=== PATIENT | male | born 1985 | race Caucasian/White ===

== ENCOUNTER 2017-02-21 15:06 | Emergency (ER) | payer SELFPAY ==
--- NOTE | 2017-02-21 16:37 | EKG REPORT ---
SEVERITY:- OTHERWISE NORMAL ECG - SINUS ARRHYTHMIA, RATE [id number] : Confirmed by: Maria Teresa Rogers 21-Feb-2017 16:36:16
[2017-02-21] MEDS ORDERED: PROMETHAZINE HCL 25 MG TABLET PO ONE (16:40)
[2017-02-21] MEDS ORDERED: ACETAMINOPHEN 325 MG TABLET PO ONE (16:40)
--- NOTE | 2017-02-21 16:48 | ER Document Report ---
ED General - General Chief Complaint: Chest Pain Stated Complaint: CHEST PAIN/DIFFICULTY BREATHING Time Seen by Provider: 02/21/17 16:25 Notes: Patient says that about 11:30 PM , he experienced pain in the center of his chest followed by vomiting about 3 times. He was able to fall asleep about 3 AM and awakened about 6:15 in the morning Wednesday feeling "lethargic" and still having some mild pain, but it was subsiding. He was able to go to work at 4 PM Wednesday at a local [employer] and did not have any pain and also worked a shift on Wednesday and did not experience any pain. Then, this morning, he had the return of the pain in the center of his chest about 10 AM and it is not gone away since then. He has not had any vomiting since the initial episode night. Does not have any pains in his abdomen. Feels a little bit short of breath. Has not had a significant cough or cold or chest congestion. Not having any fevers. Has never had this chest pain before. Patient recalls no unusual activity or injury. Denies being under a lot of stress or suffering anxiety. Patient is not on any regular prescription medications. Has only taken 1 ibuprofen for this chest pain Wednesday. Patient says that he is a recovering alcoholic and addict and does not wish to have any narcotic pain medications. TRAVEL OUTSIDE OF THE [place] IN LAST 30 DAYS: No - Related Data Allergies/Adverse Reactions: levofloxacin [From Levaquin] Allergy (Verified 02/21/17 15:13) Past Medical History - Social History Smoking Status: Current Every Day Smoker Frequency of alcohol use: None Drug Abuse: None Family History: Reviewed & Not Pertinent Patient has suicidal ideation: No Patient has homicidal ideation: No Psychiatric Medical History: Denies: Hx Anxiety Past Surgical History: Reports: Hx Orthopedic Surgery - rt shoulder and rt knee , rt wrist - Immunizations Hx Diphtheria, Pertussis, Tetanus Vaccination: Yes Review of Systems - Review of Systems Notes: REVIEW OF SYSTEMS: CONSTITUTIONAL : Denies fever. EENT: Denies eye, ear, nose or mouth or throat pain or other symptoms. CARDIOVASCULAR: See HPI. RESPIRATORY: Denies cough, chest congestion, but a "little bit short of breath ". GASTROINTESTINAL: Denies abdominal pain or nausea, vomiting, or diarrhea. GENITOURINARY: Denies difficulty or painful urinating, urinary frequency, blood in urine. MUSCULOSKELETAL: Denies back or neck pain. Denies joint pain or swelling. SKIN: Denies rash or skin lesions. NEUROLOGICAL: Denies LOC or altered mental status. Denies headache. Denies sensory loss or motor deficits. ALL OTHER SYSTEMS REVIEWED AND NEGATIVE. Physical Exam - Vital signs Vitals: Temp Pulse Resp BP Pulse Ox 98.8 F 77 18 152/96 H 97 02/21/17 15:12 02/21/17 15:12 02/21/17 15:12 02/21/17 15:12 02/21/17 15:12 Interpretation: Normal - Notes Notes: PHYSICAL EXAMINATION: GENERAL: Well-appearing, in no acute distress. Vital signs all normal. HEAD: Atraumatic, normocephalic. NECK: Normal range of motion, supple. LUNGS: Breath sounds clear and equal bilaterally. Very slight tenderness to palpate in the midsternal region. HEART: Regular rate and rhythm without murmurs. No rubs heard. ABDOMEN: Soft, nontender. No guarding or rebound. BACK: No tenderness throughout entire back. EXTREMITIES: Normal range of motion without pain. Negative Homans bilaterally. NEUROLOGICAL: Normal speech, normal gait. Normal sensory, motor, and reflex exams. Awake, alert, and oriented x3. PSYCH: Normal mood, normal affect. Anxious SKIN: Warm, dry, no rashes. Course - Vital Signs Vital signs: Temp Pulse Resp BP Pulse Ox 98.9 F 78 19 148/74 H 100 02/21/17 20:30 02/21/17 20:30 02/21/17 20:30 02/21/17 20:30 02/21/17 20:30 02/22/17 00:13 Patient's d-dimer was only minimally elevated at 0.54, but I recommended a CTA and the patient agreed. This study was negative for pulmonary emboli. It did, however, show a significant right diaphragmatic hernia with part of the dome of the liver in the hernia. However, I do not think this finding has anything to do with the patient's pain that he is experiencing. I once again question the patient as to whether he might be under unusual stress or be anxious or worried or be having a panic attack and he is very firm that he is not feeling particularly overstressed. Patient has off for a few days with the holiday and I advised him to rest and follow-up with a local primary care or return for us to reevaluate if he still having symptoms after 23 February is over. - Laboratory Result Diagrams: 02/21/17 17:23 02/21/17 17:23 Laboratory results interpreted by me: 02/21/17 02/21/17 17:23 17:23 WBC 14.7 H Absolute Neutrophils 11.0 H D-Dimer 0.54 H Discharge - Discharge Clinical Impression: Chest pain, non-cardiac Condition: Stable Disposition: HOME, SELF-CARE Additional Instructions: CHEST PAIN OF UNCLEAR CAUSE: The exact cause of your chest pain isn't clear. Fortunately, there is no evidence of a dangerous medical condition. Further testing may be required to find the source of the pain. Most often, we find that this pain is coming from the chest wall -- the muscles or rib joints in the chest. But chest pain can come from the lung and lung lining, the esophagus, the heart valves or heart lining, and even the stomach or gallbladder. Rest. Eat lightly until the pain is gone. We may prescribe medicine for pain and inflammation. You should call the physician immediately if the pain radiates to the shoulder, jaw or arms; if you start to run a fever or develop a cough; or if you develop shortness of breath, or other new or alarming symptoms. NORMAL EXAM AND WORKUP: At this time, your examination and workup show no significant abnormality. No significant abnormal physical findings were noted. All laboratory, EKG, and imaging (x-ray, CT scans, ultrasound) studies that were ordered show no significant abnormality. Although your examination and all studies that were ordered showed no significant abnormal finding, there are no examinations and no studies that are 100% accurate. There is always the possibility that some abnormality could exist and not be detected with physical examination or within the limits and capabilities of laboratory and other studies. You should return or follow up as you were instructed on your visit today for further evaluation if your symptoms do not resolve. CHEST WALL PAIN: Your chest pain may be coming from the chest wall. This is often caused by straining the muscles or joints in the chest during physical activity, direct trauma, coughing, or vigorous vomiting. Persons with arthritis are especially prone to this type of pain, due to inflammation of the cartilage joints near the breast bone. Occasionally, no cause can be found. Rest from strenuous physical activity. This kind of chest pain is usually made worse by movement of the chest. Depending on the symptoms, we may prescribe medicine for pain, muscle relaxation, and antiinflammatory effects. If the pain is new, and seems to be due to muscle strain, cold packs can help. Otherwise, apply gentle warmth to the painful area for 15 minutes every hour or two. You should call contact the doctor immediately if things change. Further evaluation is needed if you develop a fever or cough, if the nature of the pain changes, or if you become short of breath. ASPIRIN: Aspirin has been shown to have a beneficial effect on blood circulation by reducing the clotting effect of platelets in the blood. These beneficial effects can be achieved by taking just a single baby (81 mg) aspirin a day. It is recommended that any person over the age of forty take a single baby aspirin every day for heart and brain circulation, unless you are allergic to aspirin or have some significant bleeding disorder. It is strongly recommended that people who have proven cardiac or blood circulation disturbances should take a baby aspirin every day. Stop Smoking You should stop smoking. The tar and chemicals in cigarette smoke are harmful. Smoking has been shown to cause: Emphysema and chronic bronchitis Lung cancer Cancer of the mouth, larynx, stomach, and pancreas Heart disease and stroke Stillbirths and miscarriage Premature aging In addition, smoking increases the chances of respiratory infections and ear infections in children of smokers, and increases the risk of cancer in persons exposed to second-hand smoke. Classes are available to help you stop smoking. If you are serious about wanting to quit, we can help arrange this therapy for you, or you can contact the local lung or cancer association. FOLLOW-UP CARE: If you have been referred to a physician for follow-up care, call the physician s office for an appointment as you were instructed or within the next two days. If you experience worsening or a significant change in your symptoms, notify the physician immediately or return to the Emergency Department at any time for re-evaluation. Return for further evaluation if you develop new or worsening symptoms.
[2017-02-21 17:43] LABS: ABSOLUTE BASOPHILS # (AUTO) 0.1 10^3/uL (0.0-0.2); ABSOLUTE EOSINOPHILS # (AUTO) 0.3 10^3/uL (0.0-0.6); ABSOLUTE MONOCYTES (AUTO) 1.4 10^3/uL (0.1-1.4); BASOPHILS % (AUTO) 0.5 % (0-2); EOSINOPHILS % (AUTO) 1.9 % (0-6); HEMATOCRIT 48.6 % (37.9-51.0); HEMOGLOBIN 15.6 g/dL (13.5-17.0); HGB HCT DIFFERENCE -1.8; LYMPHOCYTES % (AUTO) 13.6 % (13-45); MEAN CORPUSCULAR HEMOGLOBIN 29.1 pg (27.0-33.4); MEAN CORPUSCULAR HGB CONC 32.2 g/dL (32.0-36.0); MEAN CORPUSCULAR VOLUME 90 fl (80-97); MONOCYTES % (AUTO) 9.2 % (3-13); RED BLOOD COUNT 5.37 10^6/uL (4.35-5.55); RED CELL DISTRIBUTION WIDTH 13.3 % (11.5-14.0); SEGMENTED NEUTROPHILS % (AUTO) 74.8 % (42-78); WHITE BLOOD COUNT 14.7 10^3/uL (4.0-10.5)
[2017-02-21 17:48] LABS: APPEARANCE,URINE CLEAR; BILIRUBIN,URINE NEGATIVE (NEGATIVE); GLUCOSE, URINE NEGATIVE (NEGATIVE); KETONES,URINE NEGATIVE (NEGATIVE); LEUKOCYTE ESTERASE,URINE NEGATIVE (NEGATIVE); NITRITE,URINE NEGATIVE (NEGATIVE); PROTEIN,URINE NEGATIVE (NEGATIVE); URINE SPECIFIC GRAVITY 1.018; UROBILINOGEN,URINE NEGATIVE mg/dL (<2.0)
[2017-02-21 18:01] LABS: ALANINE AMINOTRANSFERASE 45 U/L (21-72); ALBUMIN 4.5 g/dL (3.5-5.0); ALKALINE PHOSPHATASE 69 U/L (38-126); ANION GAP 10 (5-19); ASPARTATE AMINO TRANSFERASE 25 U/L (17-59); BILIRUBIN,DIRECT 0.3 mg/dL (0.0-0.4); BILIRUBIN,TOTAL 0.8 mg/dL (0.2-1.3); BLOOD UREA NITROGEN 13 mg/dL (7-20); CALCIUM 9.6 mg/dL (8.4-10.2); CARBON DIOXIDE 28 mmol/L (22-30); CHLORIDE 100 mmol/L (98-107); CREATINE KINASE 145 U/L (55-170); CREATININE RESULT 0.92 mg/dL (0.52-1.25); GLUCOSE 91 mg/dL (75-110); POTASSIUM 4.8 mmol/L (3.6-5.0); SODIUM 137.8 mmol/L (137-145); TOTAL PROTEIN 7.4 g/dL (6.3-8.2)
--- NOTE | 2017-02-21 18:01 | RADIOLOGY REPORT (SQ) ---
EXAM DESCRIPTION: CHEST PA/LAT COMPLETED DATE/TIME: 02/21/2017 5:30 pm REASON FOR STUDY: Mid anterior chest pain COMPARISON: 2009. TECHNIQUE: Frontal and lateral radiographic views of the chest acquired. NUMBER OF VIEWS: Two view. LIMITATIONS: None. FINDINGS: LUNGS AND PLEURA: No opacities, masses or pneumothorax. No pleural effusion. MEDIASTINUM AND HILAR STRUCTURES: No masses or contour abnormalities. HEART AND VASCULAR STRUCTURES: Heart normal size. No evidence for failure. BONES: No acute findings. HARDWARE: None in the chest. OTHER: No other significant finding. IMPRESSION: NO SIGNIFICANT RADIOGRAPHIC FINDING IN THE CHEST. TECHNICAL DOCUMENTATION: JOB ID: [id number] [email or web address]- All Rights Reserved
[2017-02-21 18:13] LABS: CREATINE KINASE MB 1.78 ng/mL (<4.55)
[2017-02-21 18:20] LABS: TROPONIN I < 0.012 ng/mL
--- NOTE | 2017-02-21 19:56 | RADIOLOGY REPORT (SQ) ---
EXAM DESCRIPTION: CTA CHEST COMPLETED DATE/TIME: 02/21/2017 7:42 pm REASON FOR STUDY: Anterior chest pain, minimally elevated d-dimer COMPARISON: Radiographs. TECHNIQUE: CT scan of the chest performed using helical scanning technique with dynamic intravenous contrast injection. Images reviewed with lung, soft tissue and bone windows. Reconstructed coronal and sagittal MPR images reviewed. Additional 3 dimensional post-processing performed to develop Maximal Intensity Projection images (NH P). All images stored on PACS. All CT scanners at this facility use dose modulation, iterative reconstruction, and/or weight based d osing when appropriate to reduce radiation dose to as low as reasonably achievable (ALARA). [facility]: Dose Right [facility]: CareDose [facility]: Dose Right [facility]: Teradose 4D [facility]: Symphony Dynamo CONTRAST TYPE AND DOSE: contrast/concentration: Isovue 370.00 mg/ml; Total Contrast Delivered: 83.0 ml; Total Saline Delivered: 110.0 ml RENAL FUNCTION: None required. The patient is less than 50 years old. RADIATION DOSE: Up-to-date CT equipment and radiation dose reduction techniques were employed. CTDIv ol: 23.2 - 26.0 mGy. DLP: 1083 mGy-cm. . LIMITATIONS: None. FINDINGS: LUNGS AND PLEURA: Minimal right lower lobe posterior scar/ subsegmental atelectasis. No a cute infiltrate. No pleural disease. Central right diaphragmatic hernia containing a portion of jennifer er dome. This herniated liver tissue measures up to 10 cm maximally. AORTA AND GREAT VESSELS: No aneurysm or dissection. HEART: No pericardial effusion. PULMONARY ARTERIES: No emboli visualized in the main pulmonary arteries or the segmental branches. HILAR AND MEDIASTINAL STRUCTURES: No identified masses or abnormal nodes. HARDWARE: None in the chest. UPPER ABDOMEN: No significant findings. Limited exam. THYROID AND OTHER SOFT TISSUES: No masses. No adenopathy. BONES: No acute or significant finding. 3D MIPS: Confirm above findings. OTHER: No other significant finding. IMPRESSION: 1. No pulmonary embolus or acute pulmonary infiltrate. 2. Right diaphragmatic hernia, l ikely chronic when correlated with radiographs going back to 2009. The hernia contains fat and a por tion of liver dome. TECHNICAL DOCUMENTATION: JOB ID: [id number] Quality ID # [id number]: Final reports with documentation of one or more dose reduction techniques (e.g., Au tomated exposure control, adjustment of the mA and/or kV according to patient size, use of iterative reconstruction technique) 2010 [employer]- All Rights Reserved
[2017-02-21 20:36] VITALS: BP 148/74
== END 2017-02-21 20:30 | disposition home or self-care (01) ==
LOC: ER 15:06
DX: R07.89 Other chest pain (principal); K44.9 Diaphragmatic hernia without obstruction or gangrene; R06.02 Shortness of breath; F17.200 Nicotine dependence, unspecified, uncomplicated; Z88.1 Allergy status to other antibiotic agents
CPT/HCPCS: 36415; 71020; 71275; 80053; 81001; 82550; 82553; 84484; 85025; 85379; 93005; 93010; 99285

== ENCOUNTER 2017-02-22 18:02 | Observation (INO) | payer SELFPAY ==
[~2017-02-22 18:02] MED LIST: DEXAMETHASONE SOD PHOSPHATE INJ 4 MG/1 ML VIAL ONE; GLYCOPYRROLATE INJ 0.4 MG/2 ML VIAL ONE; LIDOCAINE 2% INJ-PF (20 MG/ML) 10 ML AMPUL ONE; NEOSTIGMINE METHYLSULFATE 10 MG/10 ML VIAL ONE; ONDANSETRON HCL INJ/PF 4 MG/2 ML SDV ONE; SUCCINYLCHOLINE CHLORIDE INJ 200 MG/10 ML VIAL ONE; VECURONIUM BROMIDE INJ 10 MG VIAL IV ONE
[2017-02-22] MEDS ORDERED: METOCLOPRAMIDE HCL ORAL SOLN 10 MG/10 ML UDCUP PO ONE (19:22)
[2017-02-22] MEDS ORDERED: MAG HYDROX/AL HYDROX/SIMETH SUSP 30 ML UDCUP PO ONE (19:22)
[2017-02-22] MEDS ORDERED: LIDOCAINE 2% VISCOUS SOLN 20 ML UDCUP PO ONE (19:22)
--- NOTE | 2017-02-22 19:26 | ER Document Report ---
ED Medical Screen (RME) - General Chief Complaint: Abdominal Pain Stated Complaint: ABDOMINAL PAIN Time Seen by Provider: 02/22/17 19:11 Notes: The patient is a 31-year-old male who presents with worsening epigastric pain and now right upper quadrant abdominal pain. He was seen in the emergency room for epigastric pain yesterday and there was concern about PE. He had a CTA, which did not show a PE, but did show evidence of a diaphragmatic fat hernia above his liver. He is also having nausea and vomiting. He denies fevers, urinary symptoms, back pain, diarrhea, constipation or rash. PE: Epigastric and RUQ tenderness, normal bowel sounds, RRR I have greeted and performed a rapid initial assessment of this patient. A comprehensive ED assessment and evaluation of the patient, analysis of test results and completion of the medical decision making process will be conducted by additional ED providers. TRAVEL OUTSIDE OF THE [place] IN LAST 30 DAYS: No - Related Data Allergies/Adverse Reactions: levofloxacin [From Levaquin] Allergy (Verified 02/22/17 18:07) Past Medical History Renal/ Medical History: Denies: Hx Peritoneal Dialysis Skin Medical History: Denies Hx MRSA Psychiatric Medical History: Denies: Hx Anxiety Past Surgical History: Reports: Hx Orthopedic Surgery - rt shoulder and rt knee , rt wrist - Immunizations Hx Diphtheria, Pertussis, Tetanus Vaccination: Yes Physical Exam - Vital signs Vitals: Temp Pulse Resp BP Pulse Ox 98.5 F 88 20 149/86 H 96 02/22/17 18:07 02/22/17 18:07 02/22/17 18:07 02/22/17 18:07 02/22/17 18:07 Course - Vital Signs Vital signs: Temp Pulse Resp BP Pulse Ox 98.5 F 88 20 149/86 H 96 02/22/17 18:07 02/22/17 18:07 02/22/17 18:07 02/22/17 18:07 02/22/17 18:07
[2017-02-22 20:50] LABS: APPEARANCE,URINE CLEAR; BILIRUBIN,URINE NEGATIVE (NEGATIVE); GLUCOSE, URINE NEGATIVE (NEGATIVE); KETONES,URINE TRACE mg/dL (NEGATIVE); LEUKOCYTE ESTERASE,URINE NEGATIVE (NEGATIVE); NITRITE,URINE NEGATIVE (NEGATIVE); PROTEIN,URINE NEGATIVE (NEGATIVE); URINE SPECIFIC GRAVITY 1.026
[2017-02-22 21:20] LABS: ABSOLUTE BASOPHILS # (AUTO) 0.1 10^3/uL (0.0-0.2); ABSOLUTE EOSINOPHILS # (AUTO) 0.1 10^3/uL (0.0-0.6); ABSOLUTE LYMPHOCYTES (AUTO) 1.6 10^3/uL (0.5-4.7); ABSOLUTE MONOCYTES (AUTO) 1.3 10^3/uL (0.1-1.4); ABSOLUTE NEUT (AUTO) 12.4 10^3/uL (1.7-8.2); BASOPHILS % (AUTO) 0.3 % (0-2); EOSINOPHILS % (AUTO) 0.5 % (0-6); HEMATOCRIT 46.2 % (37.9-51.0); HEMOGLOBIN 15.4 g/dL (13.5-17.0); LYMPHOCYTES % (AUTO) 10.3 % (13-45); MEAN CORPUSCULAR HEMOGLOBIN 29.4 pg (27.0-33.4); MEAN CORPUSCULAR HGB CONC 33.4 g/dL (32.0-36.0); MEAN CORPUSCULAR VOLUME 88 fl (80-97); MONOCYTES % (AUTO) 8.5 % (3-13); RED BLOOD COUNT 5.25 10^6/uL (4.35-5.55); RED CELL DISTRIBUTION WIDTH 13.1 % (11.5-14.0); SEGMENTED NEUTROPHILS % (AUTO) 80.4 % (42-78); WHITE BLOOD COUNT 15.4 10^3/uL (4.0-10.5)
[2017-02-22 21:34] LABS: ALANINE AMINOTRANSFERASE 50 U/L (21-72); ALBUMIN 4.5 g/dL (3.5-5.0); ALKALINE PHOSPHATASE 75 U/L (38-126); ANION GAP 14 (5-19); ASPARTATE AMINO TRANSFERASE 24 U/L (17-59); BILIRUBIN,DIRECT 0.3 mg/dL (0.0-0.4); BILIRUBIN,TOTAL 0.8 mg/dL (0.2-1.3); BLOOD UREA NITROGEN 14 mg/dL (7-20); CALCIUM 9.7 mg/dL (8.4-10.2); CARBON DIOXIDE 27 mmol/L (22-30); CHLORIDE 99 mmol/L (98-107); CREATININE RESULT 0.94 mg/dL (0.52-1.25); GLUCOSE 108 mg/dL (75-110); LIPASE 40.6 U/L (23-300); POTASSIUM 4.2 mmol/L (3.6-5.0); SODIUM 139.5 mmol/L (137-145); TOTAL PROTEIN 7.6 g/dL (6.3-8.2)
[2017-02-22] MEDS ORDERED: NORMAL SALINE 1000 ML 1,000 ML IV ONE (21:52)
[2017-02-22] MEDS ORDERED: KETOROLAC TROMETHAMINE INJ/PF 30 MG/1 ML SDV IV ONE (21:52)
--- NOTE | 2017-02-22 21:53 | ER Document Report ---
ED GI/ - General Chief Complaint: Abdominal Pain Stated Complaint: ABDOMINAL PAIN Time Seen by Provider: 02/22/17 19:11 Notes: Patient is a 31-year-old male comes emergency department for chief complaint of sharp mid to right upper quadrant pain as well as pain in the epigastric area. He denies nausea or vomiting. Symptoms have worsened since yesterday. He was evaluated yesterday and had a CTA of the chest which was negative for pulmonary emboli, showed diaphragmatic hernia which apparently was not new. Patient denies any fever or chills, states that he took MiraLAX and had a loose bowel movement because he thought he might of been constipated. 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 No current daily medications. TRAVEL OUTSIDE OF THE [place] IN LAST 30 DAYS: No - Related Data Allergies/Adverse Reactions: levofloxacin [From Levaquin] Allergy (Verified 02/22/17 18:07) Past Medical History - General Information source: Patient - Social History Smoking Status: Current Every Day Smoker Frequency of alcohol use: former heavy Drug Abuse: Other - former Lives with: Spouse/Significant other Family History: Reviewed & Not Pertinent Patient has suicidal ideation: No Patient has homicidal ideation: No Renal/ Medical History: Denies: Hx Peritoneal Dialysis Musculoskeltal Medical History: Reports Hx Musculoskeletal Deformity, Reports Hx Musculoskeletal Trauma Skin Medical History: Denies Hx MRSA Psychiatric Medical History: Denies: Hx Anxiety Past Surgical History: Reports: Hx Orthopedic Surgery - rt shoulder and rt knee , rt wrist - Immunizations Hx Diphtheria, Pertussis, Tetanus Vaccination: Yes Review of Systems - Review of Systems Constitutional: No symptoms reported EENT: No symptoms reported Cardiovascular: No symptoms reported Respiratory: No symptoms reported Gastrointestinal: See HPI Genitourinary: No symptoms reported Male Genitourinary: No symptoms reported Musculoskeletal: No symptoms reported Skin: No symptoms reported Hematologic/Lymphatic: No symptoms reported Neurological/Psychological: No symptoms reported Physical Exam - Vital signs Vitals: Temp Pulse Resp BP Pulse Ox 98.5 F 88 20 149/86 H 96 02/22/17 18:07 02/22/17 18:07 02/22/17 18:07 02/22/17 18:07 02/22/17 18:07 Interpretation: Normal - General General appearance: Alert, Anxious In distress: Mild - patient appears to be in some pain - HEENT Head: Normocephalic, Atraumatic Eyes: Normal Conjunctiva: Normal Extraocular movements intact: Yes Eyelashes: Normal Pupils: PERRL Sinus: Normal Nasal: Normal Mouth/Lips: Normal Mucous membranes: Normal Pharynx: Normal Neck: Normal - Respiratory Respiratory status: No respiratory distress Chest status: Nontender Breath sounds: Normal. No: Decreased air movement, Wheezing Chest palpation: Normal - Cardiovascular Rhythm: Regular. No: Tachycardia Heart sounds: Normal auscultation, S1 appreciated, S2 appreciated Murmur: No - Abdominal Inspection: Normal Distension: No distension Bowel sounds: Normal Tenderness: Tender - RUQ guarding on examination, otherwise unremarkable, Zamora 's sign, Guarding Organomegaly: No organomegaly - Back Back: Normal, Nontender. No: Tender, CVA tenderness - Extremities General upper extremity: Normal inspection, Nontender, Normal color, Normal ROM , Normal temperature General lower extremity: Normal inspection, Nontender, Normal color, Normal ROM , Normal temperature, Normal weight bearing. No: Maria T's sign - Neurological Neuro grossly intact: Yes Cognition: Normal Orientation: AAOx4 [place] Coma Scale Eye Opening: Spontaneous [place] Coma Scale Verbal: Oriented [place] Coma Scale Motor: Obeys Commands [place] Coma Scale Total: 15 Speech: Normal Motor strength normal: LUE, RUE, LLE, RLE Sensory: Normal - Skin Skin Temperature: Warm Skin Moisture: Dry Skin Color: Normal Course - Re-evaluation Re-evalutation: Patient examination with guarding in the right upper quadrant, positive Zamora sign, questionable for acute cholecystitis. Patient will be kept n.p.o., given Toradol, IV fluids, pending ultrasound results. Meal was at 2 PM. Ultrasound shows cholelithiasis, possible pericholecystic fluid. Leukocytosis at 15,000. Clinical picture consistent with acute cholecystitis. Giving IV antibiotics Invanz. Discussed with Dr. Paul. Discussed with Dr. Dutton, general surgery operations officer [employer] , he will come evaluate the patient. Patient states full agreement with this plan Dr. Dutton will admit the patient to the hospital. - Vital Signs Vital signs: Temp Pulse Resp BP Pulse Ox 97.5 F 72 17 141/86 H 94 02/23/17 08:02 02/23/17 08:02 02/23/17 08:02 02/23/17 08:02 02/23/17 08:02 - Laboratory Result Diagrams: 02/22/17 21:10 02/22/17 21:10 Laboratory results interpreted by me: 02/22/17 02/22/17 19:20 21:10 WBC 15.4 H Seg Neutrophils % 80.4 H Lymphocytes % 10.3 L Absolute Neutrophils 12.4 H Urine Ketones TRACE H Urine Urobilinogen 4.0 H Discharge - Discharge Clinical Impression: Cholecystitis, acute with cholelithiasis Qualifiers: Cholelithiasis location: gallbladder Biliary obstruction: without biliary obstruction Qualified Code(s): K80.00 - Calculus of gallbladder with acute cholecystitis without obstruction Condition: Stable Disposition: ADMITTED INPATIENT Admitting Provider: Surgicalist Unit Admitted: Surgical Floor
--- NOTE | 2017-02-22 22:10 | RADIOLOGY REPORT (SQ) ---
EXAM DESCRIPTION: U/S ABDOMEN LIMITED W/O DOP COMPLETED DATE/TIME: 02/22/2017 9:37 pm REASON FOR STUDY: RUQ pain COMPARISON: None. TECHNIQUE: Dynamic and static grayscale images acquired of the abdomen and recorded on PACS. Additio nal selected color Doppler and spectral images recorded. LIMITATIONS: None. FINDINGS: PANCREAS: Obscured by overlying bowel gas. LIVER: No masses. Echotexture normal. LIVER VASCULATURE: Normal directional flow of the main portal vein and hepatic veins. GALLBLADDER: Shadowing gallstone noted in the region of the neck. There is proximal small amount of pericholecystic fluid, evaluation is somewhat limited on this study due did patient's inability to mo ve an overlying bowel gas. No significant wall thickening of the gallbladder noted. ULTRASOUND-DETECTED ZAMORA'S SIGN: Positive. INTRAHEPATIC DUCTS AND COMMON DUCT: CBD and intrahepatic ducts normal caliber. No filling defects. C ommon bile duct measures 5 mm INFERIOR VENA CAVA: Normal flow. AORTA: No aneurysm. RIGHT KIDNEY: Normal size. Normal echogenicity. No solid or suspicious masses. No hydronephrosis. No calcifications. PERITONEAL AND RIGHT PLEURAL SPACE: No ascites or effusions. OTHER: No other significant findings. IMPRESSION: 1. Cholelithiasis with possible due pericholecystic fluid not well visualized on this st udy due to patient's inability to hold breath/moved in and bowel gas. No gallbladder wall thickening . Positive Zamora sign. Clinical correlation for acute cholecystitis recommended. No evidence of b iliary dilatation. No evidence of choledocholithiasis. 2. Otherwise right unremarkable right upper quadrant ultrasound. TECHNICAL DOCUMENTATION: JOB ID: [id number] [employer]- All Rights Reserved
[2017-02-22] MEDS ORDERED: ERTAPENEM SODIUM INJ 1 GM VIAL IV ONE (22:55)
[2017-02-22] MEDS ORDERED: NORMAL SALINE 1000 ML 1,000 ML IV PRN (22:55)
--- NOTE | 2017-02-22 23:27 | PDOC H&P ---
History of Present Illness Patient complains of: Abdominal pain History of Present Illness: TIA ESTRELLA is a 31 year old male who presents emergency department complaining of several day history of abdominal pain. Patient was seen in the emergency department yesterday complaining of acute chest pain. He was worked up with chest x-ray, CTA which were negative for acute findings. Patient was sent home on ibuprofen. He continued to have abdominal pain more in the right upper quadrant, no bowel movement in 2 days, and anorexia. He was reevaluated today by gallbladder ultrasonography and found to have cholelithiasis with pericholecystic fluid. He has a persisting leukocytosis right upper quadrant tenderness. Findings are significant for acute cholecystitis with cholelithiasis. Surgery was consulted he was advised admission. Prior to 2 days ago the patient had no abdominal complaints. Past Medical History Psychiatric Medical History: Reports: Substance Abuse Past Surgical History Past Surgical History: Reports: Orthopedic Surgery - rt shoulder and rt knee, rt wrist, Other - Left inguinal herniorrhaphy 7 years old; trauma right arm Social History Smoking Status: Current Every Day Smoker Hx Recreational Drug Use: Yes Past Social History Note: Patient states she has a history of substance abuse Family History Family History: Reviewed & Not Pertinent Parental Family History Reviewed: Yes Children Family History Reviewed: Yes Sibling(s) Family History Reviewed.: Yes Medication/Allergy Home Medications: Ondansetron [Zofran Odt 4 mg Tablet] 1 - 2 tab PO Q4H PRN #15 tab.rapdis Allergies/Adverse Reactions: levofloxacin [From Levaquin] Allergy (Verified 02/22/17 18:07) Review of Systems Constitutional: ABSENT: chills, fever(s), headache(s), weight gain, weight loss Eyes: ABSENT: visual disturbances Ears: ABSENT: hearing changes Cardiovascular: ABSENT: chest pain, dyspnea on exertion, edema, orthropnea, palpitations Gastrointestinal: PRESENT: as per HPI Genitourinary: ABSENT: dysuria, hematuria Musculoskeletal: ABSENT: joint swelling Integumentary: ABSENT: rash, wounds Neurological: ABSENT: abnormal gait, abnormal speech, confusion, dizziness, focal weakness, syncope Physical Exam Vital Signs: Temp Pulse Resp BP Pulse Ox 98.2 F 60 20 135/82 H 95 02/22/17 22:48 02/22/17 22:48 02/22/17 22:48 02/22/17 22:48 02/22/17 22:48 Intake & Output 02/21/17 02/22/17 02/23/17 06:59 06:59 06:59 Weight 119.2 kg General appearance: PRESENT: mild distress Head exam: PRESENT: normocephalic Eye exam: PRESENT: EOMI Ear exam: PRESENT: TM's normal bilaterally Mouth exam: PRESENT: moist Neck exam: PRESENT: full ROM Respiratory exam: PRESENT: chest wall tenderness Cardiovascular exam: PRESENT: RRR Pulses: PRESENT: normal carotid pulses, normal radial pulses GI/Abdominal exam: PRESENT: other - Significantly tender right upper quadrant with some guarding. No hernia no organomegaly. Rectal exam: PRESENT: deferred Extremities exam: PRESENT: full ROM Musculoskeletal exam: PRESENT: ambulatory Neurological exam: PRESENT: alert, altered, awake, oriented to person, oriented to place Psychiatric exam: PRESENT: appropriate affect Skin exam: PRESENT: dry Results Laboratory Results: 02/22/17 21:10 02/22/17 21:10 02/22/17 02/22/17 02/22/17 19:20 21:10 21:10 WBC 15.4 H RBC 5.25 Hgb 15.4 Hct 46.2 MCV 88 MCH 29.4 MCHC 33.4 RDW 13.1 Plt Count 293 Seg Neutrophils % 80.4 H Lymphocytes % 10.3 L Monocytes % 8.5 Eosinophils % 0.5 Basophils % 0.3 Absolute Neutrophils 12.4 H Absolute Lymphocytes 1.6 Absolute Monocytes 1.3 Absolute Eosinophils 0.1 Absolute Basophils 0.1 Sodium 139.5 Potassium 4.2 Chloride 99 Carbon Dioxide 27 Anion Gap 14 BUN 14 Creatinine 0.94 Est GFR ( Amer) > 60 Est GFR (Non-Af Amer) > 60 Glucose 108 Calcium 9.7 Total Bilirubin 0.8 AST 24 ALT 50 Alkaline Phosphatase 75 Total Protein 7.6 Albumin 4.5 Lipase 40.6 Urine Color YELLOW Urine Appearance CLEAR Urine pH 7.0 Ur Specific [place] 1.026 Urine Protein NEGATIVE Urine Glucose (UA) NEGATIVE Urine Ketones TRACE H Urine Blood NEGATIVE Urine Nitrite NEGATIVE Ur Leukocyte Esterase NEGATIVE Urine WBC (Auto) 1 Urine RBC (Auto) 2 Impressions: Abdomen Ultrasound 02/22/17 19:22 IMPRESSION: 1. Cholelithiasis with possible due pericholecystic fluid not well visualized on this study due to patient's inability to hold breath/moved in and bowel gas. No gallbladder wall thickening. Positive Zamora sign. Clinical correlation for acute cholecystitis recommended. No evidence of biliary dilatation. No evidence of choledocholithiasis. 2. Otherwise right unremarkable right upper quadrant ultrasound. Assessment & Plan - Diagnosis (1) Cholecystitis, acute with cholelithiasis Is this a current diagnosis for this admission?: YesPlan: Plan: 1. Admit, IV fluids, IV antibiotics, n.p.o. after midnight 2. Laparoscopic, possible open cholecystectomy, tomorrow, general anesthesia, 1 hour, possible drain; the mechanics of the operation, including an explanation of risks benefits alternatives reviewed with the patient. I believe he understands and agrees to proceed. (2) History of substance abuse Is this a current diagnosis for this admission?: YesPlan: Patient expresses wishes to have no narcotics. We will respect those wishes (3) Smoker Is this a current diagnosis for this admission?: YesPlan: Patient smokes a pack a day. - Time Time Spent: 50 to 70 Minutes Critical Time spent with patient: 15-24 minutes Anticipated discharge: Home - Inpatient Certification Medical Necessity: Need For IV Fluids, Need for Pain Control, Need for IV Antibiotics, Need for Surgery
[2017-02-22] MEDS: RINGERS SOLUTION,LACTATED 1,000 ML IV PRN (23:51)
[2017-02-23] MEDS ORDERED: KETOROLAC TROMETHAMINE INJ/PF 30 MG/1 ML SDV ONE (01:58)
[2017-02-23] MEDS: CEFAZOLIN 1 GM/D5W RTU 1 GM/50 ML RTUPB IV SCH ×2 (05:01→13:06)
[2017-02-23] MEDS: KETOROLAC TROMETHAMINE INJ/PF 30 MG/1 ML SDV IV PRN ×3 (06:26→14:39)
[2017-02-23] MEDS: RINGERS SOLUTION,LACTATED 1,000 ML IV PRN (11:50)
[2017-02-23] MEDS ORDERED: HYDROMORPHONE HCL INJ/PF 2 MG/ML AMPULE ONE (14:55)
[2017-02-23] MEDS ORDERED: PROPOFOL INJ 200 MG/20 ML VIAL IV ONE (14:55)
[2017-02-23] MEDS ORDERED: MIDAZOLAM 2 MG/2 ML INJ ONE (14:55)
[2017-02-23] MEDS ORDERED: FENTANYL CITRATE INJ/PF 250 MCG/5 ML AMPULE ONE (14:55)
[2017-02-23] MEDS ORDERED: IBUPROFEN INJ 800 MG/8 ML VIAL IV ONE (14:56)
[2017-02-23] MEDS ORDERED: DEXMEDETOMIDINE INJ 80 MCG/20 ML VIAL IV ONE (14:56)
[2017-02-23] MEDS ORDERED: BUPIVACAINE HCL 0.5%-EPI 1:200000 INJ/PF 30 ML VIAL ONE (15:25)
[2017-02-23] MEDS ORDERED: LIDOCAINE 1% INJ-PF (10 MG/ML) 30 ML SDV ONE (15:25)
[2017-02-23] MEDS ORDERED: CEFOXITIN 1 GM/D5W RTU 2 GM/100 ML RTUPB IV ONE (15:46)
[2017-02-23] MEDS ORDERED: DIPHENHYDRAMINE HCL 50 MG/ML VIAL IV PRN (16:09)
[2017-02-23] MEDS ORDERED: FENTANYL CITRATE INJ/PF 100 MCG/2 ML AMPUL IV PRN ×3 (16:09)
[2017-02-23] MEDS ORDERED: PROMETHAZINE HCL INJ 25 MG/1 ML VIAL IV PRN (16:09)
[2017-02-23] MEDS ORDERED: MEPERIDINE HCL/PF INJ 25 MG/1 ML DISP.SYRIN IV PRN (16:09)
[2017-02-23] MEDS ORDERED: MORPHINE SULFATE 10 MG/ML INJ IV PRN (16:09)
[2017-02-23] MEDS ORDERED: ONDANSETRON HCL INJ/PF 4 MG/2 ML SDV IV PRN (17:43)
[2017-02-23] MEDS ORDERED: PANTOPRAZOLE SODIUM 40 MG VIAL IV SCH (17:45)
[2017-02-23] MEDS ORDERED: PANTOPRAZOLE SODIUM 40 MG VIAL IV ONE (18:45)
--- NOTE | 2017-02-23 18:54 | OPERATIVE REPORT E ---
Operative Report NAME: TIA ESTRELLA : 1985 AGE: 31Y DATE OF SURGERY: 02/23/2017 ROOM: 529 PREOPERATIVE DIAGNOSES: 1. Acute cholecystitis. 2. Cholelithiasis. POSTOPERATIVE DIAGNOSES: 1. Acute cholecystitis. 2. Cholelithiasis. OPERATION: Laparoscopic cholecystectomy. SURGEON: KRISTINA GRACE M.D. COURT OPERATIONS CLERK: None. BLOOD LOSS: 20 mL. COMPLICATIONS: None. URINE OUTPUT: Not monitored. FLUIDS: 69 mL of crystalloid. INDICATION AND FINDINGS: This is a healthy 31-year-old male who came to the emergency room yesterday evening complaining of right upper quadrant pain, intense nausea, vomiting and found to have acute cholecystitis with cholelithiasis. His white blood cell count was 15,000. The decision was made to take him to surgery and to perform laparoscopic cholecystectomy, possible open, possible cholangiogram. The procedure, risks, benefits, and complications were explained to the patient including the possibility of bleeding from the liver and/or injury to the common bile duct which might require open repair at a tertiary center. All the above have been explained to the patient, and he decided to proceed. DESCRIPTION OF PROCEDURE: Once in the operating room, the patient was placed in supine position. General anesthesia induced by endotracheal intubation. Abdomen was prepped and draped in the usual fashion. Incision was made just above the umbilicus. The skin was covered with towel clips and a 5 mm port with Optiview adaptor and 5 mm scope was inserted through the abdominal wall into the peritoneal cavity without difficulty. CO2 pneumoperitoneum was established. The patient was then placed in reverse Trendelenburg position with the right side elevated. Three additional ports, an 11 mm, and two 5 mm ports were placed in the epigastrium and right upper quadrant, respectively. The gallbladder was found to be small and distended and difficult to grasp. Therefore a needle cholecystostomy was performed by inserting a laparoscopic needle connected with syringe into the gallbladder. Green bile was obtained. This was sent for aerobic and anaerobic cultures as well as Gram stain. The gallbladder was then grasped at the level of the fundus, elevated, retroflexed. The cystic neck was then grasped and pulled anterior toward the patient's right. A critical view of safety was obtained by dividing the peritoneal attachments of the gallbladder both medially and laterally with hook cautery without difficulty. The dissection was then continued more distally until the cystic neck was approached. This was dissected circumferentially. The critical view of safety was then obtained, and a large space posterior to the cystic duct was identified. Inspection of the cystic duct revealed a thick cystic duct containing a stone, which appeared to be dislodged. The decision was made to amputate the gallbladder at the level of the cystic duct just above the cystic stone. This was done with inserting the 11 mm port with a 12 mm port at the level of the epigastrium and an endo-ROSEMARIE stapler with a blue brick unloader tender was inserted, placed through the critical view of safety. The cystic duct was then clamped and divided with a ROSEMARIE-stapler. The stapler was then removed and gallbladder was then dissected off the liver bed without difficulty with a hook and cautery and extracted from the peritoneal cavity with an Endo bag. The CO2 pneumoperitoneum was reestablished. Liver bed was found to be free from active bleeding. The abdominal cavity was irrigated with 2000 mL of normal saline which was fully aspirated. The fascial defect over the umbilicus was closed with [id number] 0 Vicryl suture using a fascial closure device under direct visualization and the suture was left untied. A 10-mn flat Jack-Kim drain was inserted through the epigastric port and inserted through the right upper quadrant port site, placed in the gallbladder fossa and sutured to the skin with a 2-0 nylon suture and connected to bulb suction. The fascial defect of the epigastrium was closed with the previously placed 0 Vicryl suture. All skin incisions were closed with subcuticular 4-0 running suture. The patient tolerated the procedure well, extubated, and transferred to the recovery room in satisfactory condition. All skin incisions were closed with 4-0 Monocryl subcuticular suture with Dermabond. ANESTHESIA: General. FLUIDS: 1000. DRAINS: One 10-mm flat Jack-Kim drain. DICTATING PHYSICIAN: KRISTINA GRACE M.D. [id number] PHY#: [id number] ID: [id number] JOB#: [id number] ACCT: [id number] cc:KRISTINA GRACE M.D. > [facility]
[2017-02-23] MEDS ORDERED: CEFOXITIN INJ 1 GM VIAL ONE (21:58)
[2017-02-23] MEDS: CEFOXITIN 1 GM/D5W RTU 50 ML IV SCH (23:03)
[2017-02-23] MEDS: MORPHINE SULFATE 10 MG/ML INJ IV PRN (23:10)
[2017-02-23] MEDS: DEXTROSE 5%-LACTATED RINGERS 1,000 ML IV PRN (23:11)
[2017-02-24] MEDS: MORPHINE SULFATE 10 MG/ML INJ IV PRN ×2 (03:05→07:39)
[2017-02-24 04:13] LABS: HEMATOCRIT 40.4 % (37.9-51.0); HGB HCT DIFFERENCE -0.5; MEAN CORPUSCULAR HEMOGLOBIN 29.1 pg (27.0-33.4); MEAN CORPUSCULAR HGB CONC 32.9 g/dL (32.0-36.0); MEAN CORPUSCULAR VOLUME 89 fl (80-97); RED BLOOD COUNT 4.56 10^6/uL (4.35-5.55); RED CELL DISTRIBUTION WIDTH 13.1 % (11.5-14.0); WHITE BLOOD COUNT 12.3 10^3/uL (4.0-10.5)
[2017-02-24 04:15] LABS: HEMOGLOBIN 13.3 g/dL (13.5-17.0)
[2017-02-24 04:30] LABS: ALANINE AMINOTRANSFERASE 75 U/L (21-72); ALBUMIN 3.6 g/dL (3.5-5.0); ALKALINE PHOSPHATASE 60 U/L (38-126); ANION GAP 11 (5-19); ASPARTATE AMINO TRANSFERASE 54 U/L (17-59); BILIRUBIN,DIRECT 0.3 mg/dL (0.0-0.4); BILIRUBIN,TOTAL 0.6 mg/dL (0.2-1.3); BLOOD UREA NITROGEN 11 mg/dL (7-20); CALCIUM 8.7 mg/dL (8.4-10.2); CARBON DIOXIDE 23 mmol/L (22-30); CHLORIDE 104 mmol/L (98-107); CREATININE RESULT 0.72 mg/dL (0.52-1.25); GLUCOSE 130 mg/dL (75-110); POTASSIUM 4.4 mmol/L (3.6-5.0); SODIUM 138.3 mmol/L (137-145); TOTAL PROTEIN 6.3 g/dL (6.3-8.2)
[2017-02-24] MEDS: DEXTROSE 5%-LACTATED RINGERS 1,000 ML IV PRN (07:34)
[2017-02-24] MEDS ORDERED: ENOXAPARIN SODIUM INJ 40 MG/0.4 ML DISP.SYRIN SUBCUT SCH (08:00)
[2017-02-24] MEDS ORDERED: PANTOPRAZOLE SODIUM 40 MG VIAL IV SCH (10:00)
[2017-02-24] MEDS: CEFOXITIN 1 GM/D5W RTU 50 ML IV SCH ×3 (10:08→22:20)
--- NOTE | 2017-02-24 11:47 | PDOC PROGRESS REPORT ---
Subjective Progress Note for:: 02/24/17 Subjective:: The patient has no complaints of, he is tolerating p.o. well, no nausea or vomiting. Physical Exam Vital Signs: Temp Pulse Resp BP Pulse Ox 98.3 F 69 18 145/85 H 93 02/24/17 07:51 02/24/17 07:51 02/24/17 07:51 02/24/17 07:51 02/24/17 07:51 Intake & Output 02/23/17 02/24/17 02/25/17 06:59 06:59 06:59 Intake Total 0 5543 Output Total 0 3055 Balance 0 2488 Weight 118.4 kg 122.8 kg Lungs: Clear bilaterally Heart: Regular rhythm and rate Abdomen: Soft, not distended, not tender, all incisions are clean dry and intact , Jack-Kim drain present in the right upper quadrant with serosanguineous fluid Results Laboratory Results: 02/24/17 03:50 02/24/17 03:50 02/24/17 02/24/17 03:50 03:50 WBC 12.3 H RBC 4.56 Hgb 13.3 L D Hct 40.4 MCV 89 MCH 29.1 MCHC 32.9 RDW 13.1 Plt Count 239 Sodium 138.3 Potassium 4.4 Chloride 104 Carbon Dioxide 23 Anion Gap 11 BUN 11 Creatinine 0.72 Est GFR ( Amer) > 60 Est GFR (Non-Af Amer) > 60 Glucose 130 H Calcium 8.7 Total Bilirubin 0.6 AST 54 ALT 75 H Alkaline Phosphatase 60 Total Protein 6.3 Albumin 3.6 Impressions: Abdomen Ultrasound 02/22/17 19:22 IMPRESSION: 1. Cholelithiasis with possible due pericholecystic fluid not well visualized on this study due to patient's inability to hold breath/moved in and bowel gas. No gallbladder wall thickening. Positive Zamora sign. Clinical correlation for acute cholecystitis recommended. No evidence of biliary dilatation. No evidence of choledocholithiasis. 2. Otherwise right unremarkable right upper quadrant ultrasound. Assessment & Plan - Diagnosis (1) Cholecystitis, acute with cholelithiasis Qualifiers: Cholelithiasis location: gallbladder Biliary obstruction: without biliary obstruction Qualified Code(s): K80.00 - Calculus of gallbladder with acute cholecystitis without obstruction Is this a current diagnosis for this admission?: Yes - Plan Summary Plan Summary: Discontinue IV fluids Continue IV antibiotics Discontinue IV narcotics Tylenol 300 p.o. every 4 as needed for pain Likely, patient will be discharged tomorrow on oral antibiotics
[2017-02-24] MEDS: ACETAMINOPHEN 325 MG TABLET PO PRN ×3 (12:08→20:25)
[2017-02-24] MEDS ORDERED: FAMOTIDINE 20 MG TABLET PO ONE (12:30)
[2017-02-24] MEDS ORDERED: FAMOTIDINE 20 MG TABLET PO SCH (22:00)
[2017-02-25] MEDS: ACETAMINOPHEN 325 MG TABLET PO PRN ×2 (00:18→04:51)
[2017-02-25 04:20] LABS: ABSOLUTE BASOPHILS # (AUTO) 0.1 10^3/uL (0.0-0.2); ABSOLUTE EOSINOPHILS # (AUTO) 0.1 10^3/uL (0.0-0.6); ABSOLUTE LYMPHOCYTES (AUTO) 2.2 10^3/uL (0.5-4.7); ABSOLUTE MONOCYTES (AUTO) 0.9 10^3/uL (0.1-1.4); BASOPHILS % (AUTO) 0.6 % (0-2); EOSINOPHILS % (AUTO) 1.8 % (0-6); HEMATOCRIT 40.7 % (37.9-51.0); HEMOGLOBIN 13.2 g/dL (13.5-17.0); HGB HCT DIFFERENCE -1.1; LYMPHOCYTES % (AUTO) 26.5 % (13-45); MEAN CORPUSCULAR HEMOGLOBIN 29.2 pg (27.0-33.4); MEAN CORPUSCULAR HGB CONC 32.4 g/dL (32.0-36.0); MEAN CORPUSCULAR VOLUME 90 fl (80-97); MONOCYTES % (AUTO) 10.4 % (3-13); RED BLOOD COUNT 4.51 10^6/uL (4.35-5.55); RED CELL DISTRIBUTION WIDTH 13.1 % (11.5-14.0); SEGMENTED NEUTROPHILS % (AUTO) 60.7 % (42-78); WHITE BLOOD COUNT 8.3 10^3/uL (4.0-10.5)
[2017-02-25 04:50] LABS: ALANINE AMINOTRANSFERASE 68 U/L (21-72); ALBUMIN 3.5 g/dL (3.5-5.0); ALKALINE PHOSPHATASE 67 U/L (38-126); ANION GAP 12 (5-19); ASPARTATE AMINO TRANSFERASE 40 U/L (17-59); BILIRUBIN,DIRECT 0.3 mg/dL (0.0-0.4); BILIRUBIN,TOTAL 0.4 mg/dL (0.2-1.3); BLOOD UREA NITROGEN 16 mg/dL (7-20); CALCIUM 8.8 mg/dL (8.4-10.2); CARBON DIOXIDE 24 mmol/L (22-30); CHLORIDE 103 mmol/L (98-107); CREATININE RESULT 0.85 mg/dL (0.52-1.25); GLUCOSE 102 mg/dL (75-110); POTASSIUM 4.1 mmol/L (3.6-5.0); SODIUM 138.8 mmol/L (137-145); TOTAL PROTEIN 6.2 g/dL (6.3-8.2)
[2017-02-25] MEDS: CEFOXITIN 1 GM/D5W RTU 50 ML IV SCH (05:07)
[2017-02-25 08:13] VITALS: BP 150/98
--- NOTE | 2017-02-25 08:27 | PDOC PROGRESS REPORT ---
Subjective Progress Note for:: 02/25/17 Subjective:: Feels much better. Tolerating a diet well. Ambulating well. Only pain at the trocar sites. Physical Exam Vital Signs: Temp Pulse Resp BP Pulse Ox 98.2 F 67 16 150/98 H 95 02/25/17 08:12 02/25/17 08:12 02/25/17 08:12 02/25/17 08:12 02/25/17 08:12 Intake & Output 02/24/17 02/25/17 02/26/17 06:59 06:59 06:59 Intake Total 5543 1379 Output Total 3055 2150 Balance 2488 -751 Weight 122.8 kg 121.1 kg General appearance: PRESENT: no acute distress, cooperative Respiratory exam: PRESENT: clear to auscultation tri Cardiovascular exam: PRESENT: RRR GI/Abdominal exam: PRESENT: other - Soft, nondistended, minimal tenderness. Drain output is serosanguineous. Extremities exam: PRESENT: other - No swelling no tenderness Results Laboratory Results: 02/25/17 03:54 02/25/17 03:54 02/25/17 02/25/17 03:54 03:54 WBC 8.3 RBC 4.51 Hgb 13.2 L Hct 40.7 MCV 90 MCH 29.2 MCHC 32.4 RDW 13.1 Plt Count 245 Seg Neutrophils % 60.7 Lymphocytes % 26.5 Monocytes % 10.4 Eosinophils % 1.8 Basophils % 0.6 Absolute Neutrophils 5.0 Absolute Lymphocytes 2.2 Absolute Monocytes 0.9 Absolute Eosinophils 0.1 Absolute Basophils 0.1 Sodium 138.8 Potassium 4.1 Chloride 103 Carbon Dioxide 24 Anion Gap 12 BUN 16 Creatinine 0.85 Est GFR ( Amer) > 60 Est GFR (Non-Af Amer) > 60 Glucose 102 Calcium 8.8 Total Bilirubin 0.4 AST 40 ALT 68 Alkaline Phosphatase 67 Total Protein 6.2 L Albumin 3.5 Impressions: Abdomen Ultrasound 02/22/17 19:22 IMPRESSION: 1. Cholelithiasis with possible due pericholecystic fluid not well visualized on this study due to patient's inability to hold breath/moved in and bowel gas. No gallbladder wall thickening. Positive Zamora sign. Clinical correlation for acute cholecystitis recommended. No evidence of biliary dilatation. No evidence of choledocholithiasis. 2. Otherwise right unremarkable right upper quadrant ultrasound. Assessment & Plan - Diagnosis (1) Cholecystitis, acute with cholelithiasis Qualifiers: Cholelithiasis location: gallbladder Biliary obstruction: without biliary obstruction Qualified Code(s): K80.00 - Calculus of gallbladder with acute cholecystitis without obstruction Is this a current diagnosis for this admission?: YesPlan: Status post laparoscopic cholecystectomy. Patient doing well. Will discharge patient home.
--- NOTE | 2017-02-25 08:59 | DISCHARGE SUMMARY E ---
Discharge Summary NAME: TIA ESTRELLA : 1985 AGE: 31Y ADMITTED: 02/22/2017 DISCHARGED: 02/25/2017 DISCHARGE DIAGNOSIS: Acute cholecystitis. PROCEDURE PERFORMED DURING HOSPITALIZATION: Laparoscopic cholecystectomy performed by Dr. Thomas on 02/23/2017. HOSPITAL COURSE: Patient was initially admitted. He was taken to surgery where he underwent laparoscopic cholecystectomy. He initially had poor appetite, but by the time of discharge he was tolerating a diet well with minimal abdominal pain. His abdominal exam looked good. His drain output was serosanguineous and therefore was removed prior to discharge. Patient has now been discharged to home in good condition. He will follow up with [facility] in 2 weeks. He is encouraged to stay active at home, but avoid strenuous activity. Patient does not wish to take narcotics for pain. He will take alternating Tylenol and Motrin at home as needed for pain. Due to the severity of his gallbladder infection, his surgeon wanted him to be on antibiotics at home. I will discharge him on Augmentin 875/125 BID for one week. He is to call us for any problems. DICTATING PHYSICIAN: FIORELLA BLANCHARD M.D. [id number] PHY#: [id number] ID: [id number] JOB#: [id number] ACCT: [id number] cc:Precious MORTON MD, M.D. IVAN FRIANT, PA > [facility]
--- NOTE | 2017-02-26 11:18 | DISCHARGE SUMMARY E ---
Discharge Summary NAME: TIA ESTRELLA : 1985 AGE: 31Y ADMITTED: 02/22/2017 DISCHARGED: 02/25/2017 ADDENDUM DISCHARGE MEDICATION: Augmentin 875/125 one p.o. b.i.d. for 7 days. DICTATING PHYSICIAN: FIORELLA BLANCHARD M.D. [id number] PHY#: [id number] ID: [id number] JOB#: [id number] ACCT: [id number] cc:Precious MORTON MD, M.D. IVAN FRIANT, PA >
== END 2017-02-25 09:55 | disposition home or self-care (01) ==
LOC: ER 18:02 → EH 23:18 → 5 02-23 01:22
PROC: 0FT44ZZ Resection of Gallbladder, Percutaneous Endoscopic Approach (ICD-10-PCS; principal; 2017-02-23 12:00)
DX: K80.12 Calculus of gallbladder with acute and chronic cholecystitis without obstruction (principal); Z87.898 Personal history of other specified conditions; F17.210 Nicotine dependence, cigarettes, uncomplicated; Z98.890 Other specified postprocedural states
CPT/HCPCS: 99285; 36415 ×3; 87205; 87070; 83690; 85025 ×2; 85027; 87075; 87077; 80053 ×3; 81001; 87186; 88304 ×2; 76705; 94799; 47562; G0378 ×5; J2250; J3490 ×6; J0690; J1100; J0694 ×4; J3010; J1335; J1885 ×2; J2270 ×2; J1650; J1170; S0164 ×2; J0330; J2405; J7030; J7120 ×2; J2704; J1741; 790

== ENCOUNTER 2019-12-10 15:54 | Emergency (ER) | payer SELFPAY ==
[2019-12-10 16:06] VITALS: BP 175/73
[2019-12-10] MEDS ORDERED: KETOROLAC TROMETHAMINE 60 MG/2 ML SDV IM ONE (16:42)
--- NOTE | 2019-12-10 16:47 | ER Document Report ---
ED Neck/Back Problem - General Chief Complaint: Back Pain Stated Complaint: BACK PAIN Time Seen by Provider: 12/10/19 16:42 Primary Care Provider: [facility] [Provider Group] - Follow up as needed [facility] [Provider Group] - Follow up as needed [facility] [Provider Group] - Follow up as needed [facility] [Provider Group] - Follow up as needed CARMEN HEALY MD [ASSOCIATE] - Follow up as needed Mode of Arrival: Ambulatory Information source: Patient Notes: 34-year-old male presented to ED for complaint of back spasms for the last 2 weeks. He states he needs a note to go back to work that he is not allowed to go back to work without a physician's note. He states about 2-1/2 weeks ago for work he planted about 540 bushes and then had to pull a mower out of being stuck. He states that the pain is not constant it comes and goes. States sometimes the pain is worse when he is standing still. He states at this moment he is having some back pain about an level 3 out of 5. Only medical history he has is a right shoulder labrum tear that was surgically repaired a left knee dislocation it was not repaired a left inguinal hernia repair a right clavicle fracture that was not repaired. He also smokes pack a day does not drink or use any illicit drugs. 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 He did request some ibuprofen or some kind anti-inflammatory. We will give him a Toradol shot while in the emergency room. Patient is alert oriented respirations regular nonlabored speaking in full sentences walks with even steady gait. He has no signs or symptoms of cauda equina, he has no saddle anesthesia, no loss of control of bowel bladder, no loss of control or sensation to the lower extremities. He is he is mostly having spasms in the back. He states his spasms are more to the right than the left. TRAVEL OUTSIDE OF THE [place] IN LAST 30 DAYS: No - HPI Patient complains to provider of: Pain, Injury, Lower back Onset: Other - 2 weeks Where: Public place Onset: Gradual - Started about 2 weeks ago progressively got worse. Timing: Waxing and waning Quality of pain: Other - Cramping spasming Severity: Moderate Pain Level: 3 Context: Bending, Lifting Recent injury: Yes Associated symptoms: Lower back pain Relieved by: Nothing Similar symptoms previously: Yes Recently seen / treated by doctor: No - Related Data Allergies/Adverse Reactions: levofloxacin [From Levaquin] Allergy (Verified 02/22/17 18:07) Past Medical History - General Information source: Patient - Social History Smoking Status: Current Every Day Smoker Cigarette use (# per day): Yes - Pack per day Smoking Education Provided: Yes - 4 minutes Frequency of alcohol use: None Drug Abuse: None - Recovering addict 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 Lives with: Friend Family History: Reviewed & Not Pertinent Patient has suicidal ideation: No Patient has homicidal ideation: No - Past Medical History Cardiac Medical History: Reports: None Pulmonary Medical History: Reports: None EENT Medical History: Reports: None Neurological Medical History: Reports: None Endocrine Medical History: Reports: None Renal/ Medical History: Reports: None Malignancy Medical History: Reports None GI Medical History: Reports: None Musculoskeletal Medical History: Reports Hx Musculoskeletal Deformity, Reports Hx Musculoskeletal Trauma - Right labrum tear left knee dislocation right clavicle fracture Skin Medical History: Denies Hx MRSA Psychiatric Medical History: Reports: None Traumatic Medical History: Reports: Hx Fractures - Right clavicle fracture Infectious Medical History: Reports: None Past Surgical History: Reports: Hx Inguinal Hernia - Left, Hx Orthopedic Surgery - rt shoulder - Immunizations Hx Diphtheria, Pertussis, Tetanus Vaccination: Yes Review of Systems - Review of Systems Constitutional: No symptoms reported EENT: No symptoms reported Cardiovascular: No symptoms reported Respiratory: No symptoms reported Gastrointestinal: No symptoms reported. denies: Constipation, Fecal incontinence Genitourinary: No symptoms reported. denies: Incontinence, Retention Male Genitourinary: No symptoms reported Musculoskeletal: Back pain, Muscle pain, Muscle stiffness Skin: No symptoms reported Hematologic/Lymphatic: No symptoms reported Neurological/Psychological: No symptoms reported Physical Exam - Vital signs Vitals: Temp Pulse Resp BP Pulse Ox 99.2 F 86 18 175/73 H 95 12/10/19 16:05 12/10/19 16:05 12/10/19 16:05 12/10/19 16:05 12/10/19 16:05 Interpretation: Normal - General General appearance: Appears well, Alert - HEENT Head: Normocephalic, Atraumatic Eyes: Normal Pupils: PERRL - Respiratory Respiratory status: No respiratory distress Chest status: Nontender Breath sounds: Normal Chest palpation: Normal - Cardiovascular Rhythm: Regular Heart sounds: Normal auscultation Murmur: No - Abdominal Inspection: Normal Distension: No distension Bowel sounds: Normal Tenderness: Nontender Organomegaly: No organomegaly - Back Back: Normal, Tender. No: Deformity/step-off, CVA tenderness, Vertebra tenderness, Scars, Scoliosis, Wounds - Extremities General upper extremity: Normal inspection, Nontender, Normal color, Normal ROM, Normal temperature General lower extremity: Normal inspection, Nontender, Normal color, Normal ROM, Normal temperature, Normal weight bearing. No: Maria T's sign - Neurological Neuro grossly intact: Yes Cognition: Normal Orientation: AAOx4 [place] Coma Scale Eye Opening: Spontaneous [place] Coma Scale Verbal: Oriented [place] Coma Scale Motor: Obeys Commands [place] Coma Scale Total: 15 Speech: Normal Cranial nerves: Normal Cerebellar coordination: Normal Motor strength normal: LUE, RUE, LLE, RLE Additional motor exam normals: Equal buttonhole maker Babinski reflex: Normal (flexor plantar) Sensory: Normal - Psychological Associated symptoms: Normal affect, Normal mood - Skin Skin Temperature: Warm Skin Moisture: Dry Skin Color: Normal Course - Re-evaluation Re-evalutation: 12/10/19 16:58 Patient walks with a even steady gait. He denies any signs or symptoms of cauda equina, no saddle anesthesia, no loss control of bowel bladder, no loss of control or sensation to the lower extremities. He has full range of motion of his back. He states sometimes he spasms in his back since doing a lot of strenuous exercise activities about 2 and half weeks ago when he helped a plant [address] pull the mower when it was stuck and did multiple other strenuous task when the same day. States she has been having back spasms since then. - Vital Signs Vital signs: Temp Pulse Resp BP Pulse Ox 99.2 F 86 18 175/73 H 95 12/10/19 16:05 12/10/19 16:05 12/10/19 16:05 12/10/19 16:05 12/10/19 16:05 Discharge - Discharge Clinical Impression: Back muscle spasm Condition: Stable Disposition: HOME, SELF-CARE Additional Instructions: LOW BACK PAIN: Three out of every four people will have an episode of disabling back pain during their lifetime. Most commonly the pain is due to straining of the muscles and ligaments in the low back. Usual treatment includes: (1) Rest on a firm surface. Avoid lying on your stomach. (2) Ice pack the painful area. After a few days, gentle heat may be used intermittently to relax the area, or ice packs can be continued. (3) Medication may be needed -- muscle relaxers and antiinflammatory medicines are commonly used. (4) As the back improves, exercises are prescribed to strengthen the back and abdominal muscles. Your doctor will advise you on the proper care for your back at each stage in your recovery. You may be better in a few days -- or healing may take several weeks. If new symptoms of a "herniated disc" (radiation of pain, numbness, or tingling down the back of the leg or weakness in the leg) occur, you should be re-examined. Further testing may be necessary. ICE PACKS: Apply ice packs frequently against the painful area. Many different sc hedules are recommended, such as "20 minutes on, 20 minutes off" or "one hour ice, two hours rest." If you need to work, you may need to go longer between ice treatments. You should plan to have the area ice packed AT LEAST one fourth of the time. The ice should be applied over the wrap, tape, or splint, or over a layer of cloth -- not directly against the skin. Some ice bags have a built-in cloth and can be put directly on the skin. WARM PACKS: After approximately two days, apply gentle heat (such as a heating pad or hot water bottle) for about 20 to 30 minutes about every two hours -- at least four times daily. Warmth and elevation will help you make a more rapid recovery, and will ease the pain considerably. Do not use HOT heat, and never apply heat for longer than 30 minutes. The continuous heat can invisibly damage skin and muscles -- even when no burn is seen on the surface. Damaged muscles can make you MORE sore. Toradol Injection You have been given an injection of ketorolac tromethamine (Toradol). This is an excellent, safe drug for pain control. It also has potent antiinflammatory action. You should have significant pain relief within about one hour. Toradol is not addicting and is non-sedating. It does not interfere with driving or work. Call or return if you develop itching, hives, shortness of breath, or rash. Stretching Exercises for the Back The physician has recommended that you begin stretching exercises for your back. These are often used even while the back is painful. However, you should notify the physician if the activities seem to increase your pain. PELVIC TILT: Lie flat on your back with knees bent. Tighten your stomach and buttock muscles so it flattens your lower back against the floor. Hold 10 seconds. Repeat 10 times, twice daily. KNEE RAISE: Lying on the back with knees bent, raise one knee to your chest, then the other. Hold both knees against the chest 10 seconds, then lower one knee at a time. Repeat 10 times, twice daily. PARTIAL TRUNK RAISE: Lie face down, arms at your sides. Keeping your waist on the floor, use your arms raise your chest up. Support yourself on your elbows for 30 seconds. Repeat twice daily, increasing the time to two minutes as you recover. FOLLOW-UP CARE: If you have been referred to a physician for follow-up care, call the physicians office for an appointment as you were instructed or within the next two days. If you experience worsening or a significant change in your symptoms, notify the physician immediately or return to the Emergency Department at any time for re-evaluation. Forms: Elevated Blood Pressure, Smoking Cessation Education, Return to Work Referrals: CARMEN HEALY MD [ASSOCIATE] - Follow up as needed [facility] [Provider Group] - Follow up as needed [facility] [Provider Group] - Follow up as needed [facility] [Provider Group] - Follow up as needed [facility] [Provider Group] - Follow up as needed
== END 2019-12-10 16:55 | disposition home or self-care (01) ==
LOC: ER 15:54
DX: M62.830 Muscle spasm of back (principal); F17.210 Nicotine dependence, cigarettes, uncomplicated; Z88.3 Allergy status to other anti-infective agents
CPT/HCPCS: 99283; 96372; J1885

== ENCOUNTER 2020-04-24 13:26 | Emergency (ER) | payer SELFPAY ==
[2020-04-24 13:31] VITALS: BP 140/84
[2020-04-24] MEDS ORDERED: CEPHALEXIN 500 MG CAPSULE PO ONE (13:54)
[2020-04-24] MEDS ORDERED: SULFAMETHOXAZOLE/TRIMETHOPRIM 800-160 MG TABLET PO ONE (13:54)
--- NOTE | 2020-04-24 13:57 | ER Document Report ---
HPI - HPI Patient complains to provider of: Arm redness Time Seen by Provider: 04/24/20 13:50 Onset: Yesterday Onset/Duration: Gradual Quality of pain: Achy Pain Level: 2 Context: Patient presents complaining of left upper arm tenderness with area of erythema. Patient states that the area has increased in size since yesterday. Patient denies any fever or known injury. Patient denies any history of IV drug abuse. Associated Symptoms: Other - Left upper arm redness. denies: Fever Exacerbated by: Denies Relieved by: Denies Similar symptoms previously: No Recently seen / treated by doctor: No - ROS ROS below otherwise negative: Yes Systems Reviewed and Negative: Yes All other systems reviewed and negative - CONSTITUTIONAL Constitutional: DENIES: Fever, Chills - NEURO Neurology: DENIES: Weakness - CARDIOVASCULAR Cardiovascular: DENIES: Chest pain - RESPIRATORY Respiratory: DENIES: Trouble Breathing, Coughing - MUSCULOSKELETAL Musculoskeletal: REPORTS: Extremity pain - DERM Skin Color: Erythema Skin Problems: None Past Medical History - General Information source: Patient - Social History Smoking Status: Current Every Day Smoker Frequency of alcohol use: None Drug Abuse: None Occupation: None Lives with: Family Family History: Reviewed & Not Pertinent - Medical History Medical History: Negative Renal/ Medical History: Denies: Hx Peritoneal Dialysis Musculoskeletal Medical History: Reports Hx Musculoskeletal Deformity, Reports Hx Musculoskeletal Trauma - Right labrum tear left knee dislocation right clavicle fracture Skin Medical History: Denies Hx MRSA Psychiatric Medical History: Denies: Hx Anxiety Traumatic Medical History: Reports: Hx Fractures - Right clavicle fracture Past Surgical History: Reports: Hx Abdominal Surgery - hernia, Hx Inguinal Hernia - Left, Hx Orthopedic Surgery - rt shoulder, Other - Left inguinal herniorrhaphy 7 years old; trauma right arm - Immunizations Hx Diphtheria, Pertussis, Tetanus Vaccination: Yes Vertical Provider Document - CONSTITUTIONAL Agree With Documented VS: Yes Exam Limitations: No Limitations, Physical Impairment General Appearance: WD/WN - INFECTION CONTROL TRAVEL OUTSIDE OF THE [place] IN LAST 30 DAYS: No - HEENT HEENT: Atraumatic, Normocephalic - NECK Neck: Normal Inspection, Supple - RESPIRATORY Respiratory: Breath Sounds Normal, No Respiratory Distress - CARDIOVASCULAR Cardiovascular: Regular Rate, Regular Rhythm, No Murmur Pulses: Normal: Radial - MUSCULOSKELETAL/EXTREMETIES Musculoskeletal/Extremeties: MAEW, FROM - NEURO Level of Consciousness: Awake, Alert, Appropriate Motor/Sensory: No Motor Deficit - DERM Integumentary: Warm, Dry. negative: Abscess Adult Front & Back Diagram: 1 - Area of erythema that measures 5 cm x 12 cm, no central area of fluctuance, minimal calor, no lymphangitic streaking, no elbow joint involvement Course - Re-evaluation Re-evalutation: 04/24/20 14:10 Patient with what appears to be left upper arm cellulitis, patient has multiple scratches to the upper extremity although not involving the area of erythema. Patient reports tetanus immunizations currently up-to-date. No neighboring joint involvement, no concern for any septic arthritis at this time. Patient nontoxic in appearance. Good return precautions discussed with patient. Patient verbalized understanding is agreeable with discharge plan of care. - Vital Signs Vital signs: Temp Pulse Resp BP Pulse Ox 98.6 F 95 18 140/84 H 96 04/24/20 13:29 04/24/20 13:29 04/24/20 13:29 04/24/20 13:29 04/24/20 13:29 Discharge - Discharge Clinical Impression: Cellulitis Qualifiers: Site of cellulitis: extremity Site of cellulitis of extremity: upper extremity Laterality: left Qualified Code(s): L03.114 - Cellulitis of left upper limb Condition: Stable Disposition: HOME, SELF-CARE Additional Instructions: Return immediately for any new or worsening symptoms Followup with your primary care provider, call tomorrow to make a followup appointment CELLULITIS: You have an infection of your skin and underlying soft tissues called cellulitis. This is due to bacteria, which can enter through any break in the skin, or even through an irritated hair follicle. Untreated, cellulitis will usually worsen and may form an abscess which requires draining. Although many bacterial organisms can cause cellulitis and abscess formations, the most likely bacteria is Methicillin-Resistant Staph Aureus, or MRSA for short. Antibiotics are required. Usually, warm packs or warm soaks, and elevation of the infected area are recommended. You should start getting better within 24 to 36 hours. Most infections respond quickly to the right medication. Follow-up care is important, however, to check for abscess (boil) formation, unsuspected foreign body, or resistant infection. If you develop fever, chills, or if the area of infection is becoming rapidly more swollen or painful, call the doctor at once. CEPHALEXIN: The antibiotic you've been prescribed is a member of the cephalosporin class. This type of antibiotic covers a wide variety of infections, including those of the skin, lungs, and urinary tract. It's useful for staph infections. This antibiotic is slightly similar to the penicillin family. In rare cases, a person who is allergic to penicillin will also be allergic to this medication. If you have had a severe allergic reaction to penicillin, and have not taken this antibiotic since that time, notify your doctor. Antibiotics which cover many germs ("broad spectrum" antibiotics) are more likely to cause diarrhea or "yeast" infections. Women prone to vaginal yeast problems may suffer an attack after taking this antibiotic. In infants, oral thrush (white spots "stuck" on the cheek) or yeast diaper rash may result. See your doctor if these problems occur. Call at once if you develop itching, hives, shortness of breath, or lightheadedness. TRIMETHOPRIM-SULFA: You have been given a prescription for trimethoprim-sulfa (TMS, Septra, Bactrim). This is a combination antibiotic of the sulfa class, often used for urinary tract infections, middle ear infections, bronchitis, shigella intestinal infection, and Pneumocystis pneumonia. TMS is usually well-tolerated. Occasional side effects include nausea and decreased appetite. Septra is not recommended for infants less than two months of age. Do not take this medication if you have experienced severe side effects or allergy to sulfa medicine. You should stop this medicine at once and contact your physician if you develop any rash, joint pain, shortness of breath, bruising, or jaundice (yellow color in the skin), or if you develop any other new or unusual symptoms. FOLLOW-UP CARE: Most simple abscesses will not require a follow up visit. If you had packing placed in the abscess, remove it as instructed by the physician. If you have been referred to a physician for follow-up care, call the physicians office for an appointment as you were instructed or within the next two days. If you experience worsening or a significant change in your symptoms, return to the Emergency Department at any time for re-evaluation. Prescriptions: Sulfamethoxazole/Trimethoprim [Bactrim Ds Tablet] 1 each PO BID #20 tablet Cephalexin Monohydrate [Keflex 500 mg Capsule] 500 mg PO Q6H 7 Days #28 capsule Naproxen [Naprosyn 250 Nmg Tablet] 1 tab PO BID #14 tablet Referrals: [facility] [Provider Group] - Follow up as needed
== END 2020-04-24 14:09 | disposition home or self-care (01) ==
LOC: ER 13:26
DX: L03.114 Cellulitis of left upper limb (principal); F17.200 Nicotine dependence, unspecified, uncomplicated
CPT/HCPCS: 99283